=== PATIENT | male | born 1960 | race Caucasian/White ===

== ENCOUNTER → 2017-01-19 | Outpatient (CLI) | payer OTHER ==
[~2017-01-19] MED LIST: CEPH500C PO; OXYC1TAB3 PO; SULF800T23 PO
[2017-01-19 14:33] LABS: BENZODIAZEPINE, URINE NEG (NEG); COCAINE,URINE NEG (NEG); PHENCYCLIDINE, URINE NEG (NEG)
[2017-01-24 15:54] LABS: NORBUPRENORPHINE QNT 94 NG/ML (CUTOFF=2)
== END | disposition home or self-care (01) ==
LOC: C.LAB1850 09:56
PROVIDERS: ATTEND Psychiatry & Neurology Psychiatry
DX: F11.20 Opioid dependence, uncomplicated (principal)

== ENCOUNTER → 2017-06-13 | Outpatient (CLI) | payer OTHER ==
[2017-06-13 13:56] LABS: ALKALINE PHOSPHATASE 123 U/L (45-117); ALT/SGPT 23 U/L (12-78); AST/SGOT 13 U/L (15-37)
[2017-06-13 13:57] LABS: BENZODIAZEPINE, URINE NEG (NEG); COCAINE,URINE NEG (NEG); PHENCYCLIDINE, URINE NEG (NEG)
[2017-06-16 10:49] LABS: NORBUPRENORPHINE QNT 137 NG/ML (CUTOFF=2)
== END | disposition home or self-care (01) ==
LOC: C.LAB1850 12:26
PROVIDERS: ATTEND Psychiatry & Neurology Psychiatry
DX: F11.20 Opioid dependence, uncomplicated (principal)

== ENCOUNTER → 2017-10-27 | Outpatient (CLI) | payer OTHER ==
[2017-10-27 11:15] LABS: ALBUMIN 3.8 gm/dl (3.4-5.0); ALKALINE PHOSPHATASE 120 U/L (45-117); ALT/SGPT 29 U/L (12-78); AST/SGOT 20 U/L (15-37); TOTAL PROTEIN 7.4 gm/dl (6.4-8.2)
== END | disposition home or self-care (01) ==
LOC: C.LAB1850 09:28
PROVIDERS: ATTEND Psychiatry & Neurology Psychiatry
DX: F11.20 Opioid dependence, uncomplicated (principal)

== ENCOUNTER → 2018-02-09 | Outpatient (CLI) | payer OTHER ==
[2018-02-09 17:28] LABS: BASO % 0.4 %; BASO ABS # 0.04 K/uL (0-0.2); EOS % 2.3 %; EOS ABS # 0.21 K/uL (0-0.5); HEMATOCRIT 42.4 % (42-52); HEMOGLOBIN 15.2 g/dL (14.0-18.0); IG# 0.02 K/uL (0.00-0.02); LYMPH % 27.5 %; LYMPH ABS # 2.53 K/uL (1.2-3.4); MEAN CELL VOLUME 90.2 fL (80-100); MEAN CORPUSCULAR HEMOGLOBIN 32.3 pg (25-34); MEAN CORPUSCULAR HGB CONC 35.8 g/dl (32-36); MONO % 8.4 %; MONO ABS # 0.77 K/uL (0.11-0.59); NEUT % 61.2 %; NEUT ABS # 5.64 K/uL (1.4-6.5); PLATELET COUNT 219 K/uL (130-400); RED CELL DISTRIBUTION WIDTH CV 13.4 % (11.5-14.5); RED CELL DISTRIBUTION WIDTH SD 44.4 fL (36.4-46.3); WHITE BLOOD COUNT 9.21 K/uL (4.8-10.8)
[2018-02-09 17:43] LABS: ALT/SGPT 27 U/L (12-78); AST/SGOT 21 U/L (15-37); BLOOD UREA NITROGEN 17 mg/dl (7-18); CALCIUM 8.8 mg/dl (8.5-10.1); CARBON DIOXIDE 28 mmol/L (21-32); CREATININE 0.74 mg/dl (0.60-1.40); GLUCOSE 78 mg/dl (70-99); POTASSIUM 3.7 mmol/L (3.5-5.1); SODIUM 139 mmol/L (136-145)
[2018-02-09 17:45] LABS: ALKALINE PHOSPHATASE 126 U/L (45-117); TOTAL PROTEIN 7.1 gm/dl (6.4-8.2)
== END | disposition home or self-care (01) ==
LOC: C.LABSPEC 16:40
PROVIDERS: ATTEND Family Medicine
DX: R31.9 Hematuria, unspecified (principal)

== ENCOUNTER → 2018-02-13 | Outpatient (CLI) | payer OTHER | END | disposition home or self-care (01) | LOC: C.LAB1850 12:51 | PROVIDERS: ATTEND Psychiatry & Neurology Psychiatry | DX: F11.20 Opioid dependence, uncomplicated (principal) ==

== ENCOUNTER → 2018-02-14 | Outpatient (CLI) | payer OTHER ==
[~2018-02-14] MED LIST changes: +OPTIRAY 320 IV PRN
--- NOTE | 2018-02-14 15:07 | DIAGNOSTIC IMAGING REPORT ---
ABD/PELVIS COMBO CLINICAL HISTORY: 57 years-old Male presenting with HEMATURIA, PAIN WITH URINATION, back pain. TECHNIQUE: Multidetector CT of the abdomen and pelvis was performed before and after the administration of intravenous contrast. IV contrast: 94 mL of Optiray 320. A dose lowering technique was used consistent with the principles of ALARA (as low as reasonably achievable). COMPARISON: None. CT DOSE (mGy.cm): The estimated cumulative dose is 1838.68 mGycm. FINDINGS: Poising Inspector topogram: Unremarkable. Lung bases: Minimal basilar opacities, likely atelectasis. Normal heart size. No pericardial or pleural effusion. Liver: Normal morphology. No liver lesion. Patent hepatic vasculature. Biliary: No intrahepatic or extrahepatic biliary ductal dilatation. Normal gallbladder. Pancreas: Mild parenchymal atrophy. Spleen: Normal. Adrenal glands: Normal. Kidneys and ureters: A bilobed or two adjacent calculi are evident at the right ureterovesical junction. Together these measure 7 mm (series 3 image 371). Mild right pelvocaliectasis and mild distention of the right ureter. There is asymmetric mild infiltration of the right renal sinus and right perinephric fat. Subtle decreased density of the right renal parenchyma could suggest minimal edema. No additional renal or ureteral calculi. No left hydronephrosis or hydroureter. Mild right urothelial thickening. No filling defects within the renal collecting systems apart from the calculi. No evidence of renal or urothelial mass. Bladder: Circumferential bladder wall thickening. No bladder calculi. Pelvic organs: Prostate enlargement likely secondary to benign prostatic hyperplasia. Bowel: Limited diverticulosis of the sigmoid colon. No pericolonic inflammatory change. The appendix is normal. No bowel obstruction. Peritoneal cavity: No free fluid or intraperitoneal gas. Lymph nodes: No enlarged lymph nodes in the abdomen or pelvis. Vasculature: Atherosclerosis of the normal caliber abdominal aorta. IVC patent. Abdominal wall: Normal. Musculoskeletal: Degenerative changes of the spine. Bilateral pars defects of L4 with resultant grade 1 anterolisthesis of L4 on L5. IMPRESSION: 1. Obstructing bilobed or two adjacent calculi within the right ureterovesical junction with resultant mild right hydroureteronephrosis. No additional renal or ureteral calculi. No evidence of solid renal or urothelial mass. Electronically signed by: Fernando Harris M.D. 02/14/2018 3:06 PM Dictated Date/Time: 02/14/2018 2:57 PM
== END | disposition home or self-care (01) ==
LOC: C.CTS 13:43
PROVIDERS: ATTEND Family Medicine
DX: N13.2 Hydronephrosis with renal and ureteral calculous obstruction (principal)

== ENCOUNTER → 2018-02-16 | Outpatient (CLI) | payer OTHER ==
[~2018-02-16] MED LIST changes: -OPTIRAY 320 IV PRN
--- NOTE | 2018-02-16 16:03 | DIAGNOSTIC IMAGING REPORT ---
KUB CLINICAL HISTORY: 57 years-old Male presenting with N20.1 Ureteric stone. TECHNIQUE: Single supine view of the abdomen was obtained. COMPARISON: CT from 02/14/2018. FINDINGS: Nonobstructive bowel gas pattern. No gross pneumoperitoneum. 2 adjacent ureteral calculi remain in place in the distal right ureter. No radiographic evidence of renal calculi, which is concordant with the findings on recent CT. Degenerative changes of the spine. IMPRESSION: 1. Unchanged position of the 2 adjacent distal right ureteral calculi. Electronically signed by: Fernando Harris M.D. 02/16/2018 4:02 PM Dictated Date/Time: 02/16/2018 4:00 PM
== END | disposition home or self-care (01) ==
LOC: C.RAD 15:22
PROVIDERS: ATTEND Urology
DX: N20.1 Calculus of ureter (principal)

== ENCOUNTER → 2018-02-22 | Outpatient (CLI) | payer OTHER ==
[~2018-02-22] MED LIST changes: +ASPI81TA28 PO; +BUPR8MIS SL; +MULT-506 PO; +NITR1CAP33 PO; +PROP80TA2 PO; +SERT-234 PO; +TAMS0.4C38 PO
--- NOTE | 2018-02-22 11:51 | DIAGNOSTIC IMAGING REPORT ---
KUB CLINICAL HISTORY: Right flank pain. Ureteral stone. COMPARISON STUDY: CT of the abdomen and pelvis February 14, 2018 and KUB February 16, 2018. FINDINGS: 2 adjacent distal right ureteral calculi that measure up to 5 mm are unchanged in position since exam of February 16, 2018. No additional urinary calculi identified. Bowel gas pattern is normal. IMPRESSION: No change in position of 2 adjacent distal right ureteral calculi which measure up to 5 mm. Electronically signed by: Zak Holbrook M.D. 02/22/2018 11:50 AM Dictated Date/Time: 02/22/2018 11:47 AM
--- NOTE | 2018-02-22 14:54 | DIAGNOSTIC IMAGING REPORT ---
CHEST 2 VIEWS ROUTINE HISTORY: Preop. NEPHROLITHIASIS N20.0 COMPARISON: None. FINDINGS: The lungs are clear. Cardiac silhouette is normal in size. No pleural effusions. No pneumothorax. IMPRESSION: No acute process. Electronically signed by: Bishnu Naidu M.D. 02/22/2018 2:53 PM Dictated Date/Time: 02/22/2018 2:51 PM
== END | disposition home or self-care (01) ==
LOC: C.RAD 10:25
PROVIDERS: ATTEND Urology
DX: N20.0 Calculus of kidney (principal); N20.1 Calculus of ureter

== ENCOUNTER → 2018-02-24 | Day surgery (SDC) | payer OTHER ==
[2018-02-22 17:05] VITALS: Ht 177.8 cm; Wt 100.0 kg
[~2018-02-24] VITALS: Ht 177.8 cm; Wt 100.0 kg
[~2018-02-24] MED LIST changes: +ATROPINE SULFATE 0.1 MG/ML 5ML SYR IV PRN; -CEPH500C PO; +CIPROFLOXACIN 400MG / D5W IV SCH; +DEXAMETHASONE SOD INJ 4 MG/ML VIAL ONE; +EpHEDrine SULFATE 50MG/5ML SYR ONE; +EpHEDrine SULFATE INJ 50 MG/ML AMP IV PRN; +EpHEDrine SULFATE INJ 50 MG/ML AMP ONE; +FENTANYL CITRATE INJ 50 MCG/1 ML 2 ML VIAL IV PRN; +FENTANYL CITRATE INJ 50 MCG/1 ML 2 ML VIAL ONE; +HYDROmorphone INJ 0.5 MG/0.5 ML SYR IV PRN; +LABETALOL HCL IV 5 MG/ML 20ML IV PRN; +LIDOCAINE HCL 2% 2 ML VIAL (20MG/ML) ONE; +MIDAZOLAM HCL 1 MG/ML 2ML VIAL ONE; +ONDANSETRON INJ 2 MG/ML 2 ML VIAL IV PRN; +ONDANSETRON INJ 2 MG/ML 2 ML VIAL ONE; -OXYC1TAB3 PO; +OXYCODONE/ACETAMINOPHEN 5-325 TAB PO PRN; +PHENYLEPHRINE 100MCG/ML 5ML SYR IV PRN; +PROMETHAZINE HCL INJ 12.5 MG in SODIUM CHLORIDE 0.9% 50ML 50 ML IV PRN; +PROPOFOL IV EMULSION 10 MG/ML 20 ML VIAL ONE; -SULF800T23 PO
--- NOTE | 2018-02-24 10:46 | History & Physical Bridge Note ---
H&P Re-Evaluation Bridge Note: I have examined the patient, reviewed the History & Physical and in the interval since the performance of the History & Physical I have noted the following changes of clinical significance: No changes noted
[2018-02-24] MEDS: LACTATED RINGER'S 1000ML 1,000 ML IV SCH ×2 (10:54→14:09)
--- NOTE | 2018-02-24 12:43 | Discharge Instructions ---
Discharge Instructions Date of Service February 24, 2018. Admission Reason for Admission: Stones Discharge Discharge Diagnosis / Problem: R distal ureteral stone s/p ESWL Discharge Goals Goal(s): Decrease discomfort, Improve disease control, Therapeutic intervention Activity Recommendations Activity Limitations: as noted below Lifting Limitations: no more than 25 pounds, gradually increase as tolerated Exercise/Sports Limitations: rest today, gradually increase as tolerated May Resume Sexual Activity: when tolerated Shower/Bathe: no limitations Driving or Machine Use: resume 1 day after discharge . Instructions / Follow-Up Instructions / Follow-Up As scheduled in office with KUB Xray done before visit. Current Hospital Diet Patient's current hospital diet: Discharge Diet Recommended Diet: Regular Diet (good fluid intake) Procedures Procedures Performed: Right ureteral shockwave lithotripsy Pending Studies Studies pending at discharge: yes List of pending studies: KUB Xray before follow-up visit Medical Emergencies . Who to Call and When: Medical Emergencies: If at any time you feel your situation is an emergency, please call 911 immediately. . Non-Emergent Contact Non-Emergency issues call your: Urologist Call Non-Emergent contact if: you have a fever, temperature is above 101, your pain is not controlled, your pain is worsening, your pain is unusual for you, your pain is concerning you, you have any medication questions . . "Provider Documentation" section prepared by Adrian Grimes. .
--- NOTE | 2018-02-24 13:45 | [facility] Post Operative Brief Note ---
Immediate Operative Summary Operative Date February 24, 2018. Pre-Operative Diagnosis Right ureteral stone Post-Operative Diagnosis Right ureteral stone Procedure(s) Performed Right Extracorporeal Shock Wave Lithotripsy-Ureteral Surgeon Dr. Adrian Grimes Mat Packer Surgeon(s) None Estimated Blood Loss 0ml Findings Consistent with Post-Op Diagnosis Specimens None per surgeon Drains None Anesthesia Type General Complication(s) none Disposition Accompanied Pt To Recover: yes Disposition: Recovery Room / PACU
[2018-02-24 14:49] VITALS: TEMP 36.3
[2018-02-24 15:05] VITALS: BP 158/79; PULSE 60; O2SAT 96
--- NOTE | 2018-02-24 15:19 | Anesthesia Progress Nt - [facility] ---
Anesthesia Post Op Note Date & Time February 24, 2018 at 15:19 Vital Signs Pain Intensity: 6 Vital Signs Past 12 Hours Date Time Temp Pulse Resp B/P (MAP) Pulse Ox O2 Delivery O2 Flow Rate FiO2 02/24/18 14:49 36.3 57 18 146/69 (94) 96 Room Air 02/24/18 14:45 36.2 02/24/18 14:44 53 16 02/24/18 14:44 52 16 95 02/24/18 14:41 154/75 (107) 02/24/18 14:39 54 22 96 02/24/18 14:39 53 22 02/24/18 14:36 145/75 (101) 02/24/18 14:35 36.4 50 16 154/75 95 Room Air 02/24/18 14:34 55 16 95 02/24/18 14:34 55 16 02/24/18 14:31 142/81 (105) 02/24/18 14:29 52 17 96 02/24/18 14:29 52 17 02/24/18 14:26 145/73 (88) 02/24/18 14:24 58 16 95 02/24/18 14:24 58 16 02/24/18 14:21 148/78 (104) 02/24/18 14:19 58 17 97 02/24/18 14:19 57 17 02/24/18 14:17 136/81 (104) 02/24/18 14:14 56 18 100 02/24/18 14:14 57 18 02/24/18 14:11 152/79 (94) 02/24/18 14:09 52 12 02/24/18 14:09 52 12 99 02/24/18 14:06 153/76 (98) 02/24/18 14:04 53 13 100 02/24/18 14:04 54 13 02/24/18 14:01 145/76 (97) 02/24/18 13:59 55 12 02/24/18 13:59 56 12 99 02/24/18 13:56 138/71 (106) 02/24/18 13:54 57 17 99 02/24/18 13:54 54 17 02/24/18 13:51 148/82 (100) 02/24/18 13:49 58 16 100 02/24/18 13:49 59 16 02/24/18 13:47 149/78 (114) 02/24/18 13:46 36.7 62 16 149/78 99 Mask 6 02/24/18 10:23 36.5 56 16 150/86 (107) 97 Room Air Notes Mental Status: alert / awake / arousable, participated in evaluation Pt Amnestic to Procedure: Yes Nausea / Vomiting: adequately controlled Pain: adequately controlled Airway Patency, RR, SpO2: stable & adequate BP & HR: stable & adequate Hydration State: stable & adequate Anesthetic Complications: no major complications apparent
--- NOTE | 2018-02-24 15:28 | OPERATIVE REPORT ---
DATE OF OPERATION: 02/24/2018 PREOPERATIVE DIAGNOSIS: Right ureteral stone. POSTOPERATIVE DIAGNOSIS: Right ureteral stone. PROCEDURE: Right ureteral extracorporal shock wave lithotripsy. SURGEON: Adrian Grimes M.D. POLYMER TESTER: None. ANESTHESIA: General anesthesia with laryngeal mask. COMPLICATIONS: None. FINDINGS: Excellent stone fragmentation on fluoroscopy. DRAINS: None. SPECIMENS: None. DETAILS OF PROCEDURE: The patient was brought to the litho suite. He was correctly identified and the stone was visualized on his most recent x-rays. After the correct time out was performed the patient was positioned over the therapy head. An adequate level of anesthesia was administered. The extracorporeal shockwave lithotripsy treatment was then commenced. Please see the [facility] sheet for complete treatment summary. After completion of the procedure the patient was taken to the recovery room in stable condition. I attest to the content of the Intraoperative Record and any orders documented therein. Any exception s are noted below.
== END | disposition home or self-care (01) ==
LOC: X.SURG 09:38
PROVIDERS: ATTEND Urology
DX: N20.1 Calculus of ureter (principal); I10 Essential (primary) hypertension; Z82.49 Family history of ischemic heart disease and other diseases of the circulatory system; Z80.1 Family history of malignant neoplasm of trachea, bronchus and lung; F17.200 Nicotine dependence, unspecified, uncomplicated

== ENCOUNTER 2024-11-01 10:18 | Observation (INO) ==
--- NOTE | 2024-10-25 09:31 | Anesthesiology Consultation ---
Date of Service October 25, 2024 Assessment & Plan (1) Encounter for pre-operative examination: - awaiting PCP response to below message, optimization form to also be faxed to Dr. Reddy's office. - hypokalemia: 2.9 on 10/23/24 ordered by surgeon. I contacted PCP and was advised message will be sent at this time to his PCP and they will further advise patient on hypokalemia and at this time plan for surgery next week. Surgeon's office was made aware. - Per tetryl dissolver operator on 10/18/24: No known infectious disease contacts, current infectious disease symptoms in past 10 days or COVID positive test result in the past 30 days. Chart Review Chart Review: Pending: Refer to Additional Notes / Consult section and Patient NOT seen in Pre Admission Testing History Surgery Operation Date: 11/01/24 09:50 Proposed Procedures p TURP (Transurethral Resection of the Prostate) - Jamie Schwartz, DO Height/Weight Height: 5 ft 10 in Weight: 78.018 kg Allergies Allergy/AdvReac Type Severity Reaction Status Date / Time No Known Allergies Allergy Verified 10/18/24 12:13 Medications Home Medications Medication Instructions Recorded Confirmed Last Taken buprenorphine 8 mg-naloxone 2 mg 1 film sublingual QAM 01/19/22 10/18/24 01/21/22 sublingual film (Suboxone) duloxetine 30 mg capsule,delayed 30 mg PO QAM 01/19/22 10/18/24 01/20/22 release sprinkle duloxetine 60 mg capsule,delayed 60 mg PO QAM 01/19/22 10/18/24 01/20/22 release magnesium glycinate 100 mg (as 100 mg PO QPM 01/19/22 10/18/24 01/20/22 glycinate) tablet vitamin D3 25 mcg (1,000 unit)-vit 1 tab PO QAM 01/19/22 10/18/24 01/20/22 K2 90 mcg disintegrating tablet chlorthalidone 25 mg tablet 25 mg PO QAM 10/18/24 10/18/24 Unknown dutasteride 0.5 mg capsule 0.5 mg PO QAM 10/18/24 10/18/24 Unknown silodosin 8 mg capsule (Rapaflo) 8 mg PO BID 10/18/24 10/18/24 Unknown Past Medical History Medical History BPH w urinary obs/LUTS Carpal tunnel syndrome, bilateral Depression Emphysema, unspecified pt. 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, gets yearly CT, occ sob with stairs Hearing deficit BL DE JESUS History of renal stone Hx of colonic polyps Hypertension Osteoarthritis Past Family History Family History Other No family history of adverse response to anesthesia Past Surgical History Surgical History History of lithotripsy Hx of colonoscopy with polypectomy Hx of cystoscopy Social History Smoking Status: Current every day smoker tobacco type: cigarettes Smoking cigarettes per day: 25-30 cigs per day (advised) Do You Dip or Chew Tobacco: No Hx Alcohol Use: No Hx Substance Use: Yes substance use type: does not use, former substance user, marijuana and pain killers Substance Use Type Other:: hx substance abuse - painkillers Last Used Substance Other:: previous addiction to painkillers, quit 10 years ago Lab Results Anesthesia Preop Results Results Anesthesia Widget: WBC 6.19 K/ul (4.8-10.8) 10/23/24 Hgb 15.6 g/dl (14.0-18.0) 10/23/24 Hct 44.0 % (42.0-52.0) 10/23/24 Plt 191 K/uL (130-400) 10/23/24 Na 139 mmol/L (136-145) 10/23/24 K 2.9 mmol/L (3.5-5.1) L 10/23/24 Cl 96 mmol/L (98-107) L 10/23/24 CO2 36 mmol/L (21-32) H 10/23/24 BUN 18 mg/dl (6-23) 10/23/24 Creat 0.59 mg/dl (0.6-1.4) L 10/23/24 Glucose Level 92 mg/dl (70-99(Fasting)) 10/23/24 Urine Appearance Slightly Cloudy 09/11/24 Testing Electrocardiogram Date: 10/23/24 Sinus bradycardia, rate [address] abnormality No significant abnormality vs 02/22/18 EKG Chest X-Ray Date: 10/23/24 No acute chest disease. Other Testing Abdomen pelvis CT 09/24/24 1. Age-indeterminate L1 compression deformity is seen, correlation with point tenderness is recommended. 2. Prostamegaly with resultant bladder outlet obstruction. Low dose lung CT 03/21/24 1. Subacute healing nondisplaced anterior right fourth rib fracture. No pneumothorax. 2. Emphysema with bronchitis. 3. No suspicious pulmonary nodules.
[2024-11-01] MEDS ORDERED: ATROPINE SULFATE 0.1 MG/ML 10ML SYR IV PRN (10:52)
[2024-11-01] MEDS ORDERED: ONDANSETRON INJ 2 MG/ML 2 ML VIAL IV PRN (10:52)
[2024-11-01] MEDS ORDERED: ePHEDrine sulfate 50 MG/ML AMP IV PRN (10:52)
[2024-11-01] MEDS: LACTATED RINGER'S 1,000 ML IV SCH (10:58)
--- NOTE | 2024-11-01 11:00 | History & Physical Bridge Note ---
Date of Service November 01, 2024 History & Physical Bridge Note I have examined the patient, reviewed the History & Physical and in the interval since the performance of the History & Physical I have noted the following changes of clinical significance: no changes noted
[2024-11-01] MEDS ORDERED: oxyCODONE/ACETAMINOPHEN 5mg/325mg TAB PO PRN (11:07)
[2024-11-01] MEDS ORDERED: fentaNYL citrate PF 100 MCG/2 ML VIAL ONE (11:32)
[2024-11-01] MEDS ORDERED: ONDANSETRON INJ 2 MG/ML 2 ML VIAL ONE (11:32)
[2024-11-01] MEDS ORDERED: MIDAZOLAM HCL 1 MG/ML 2ML VIAL ONE (11:32)
[2024-11-01] MEDS ORDERED: PROPOFOL IV EMULSION 10 MG/ML 20 ML VIAL IV ONE (11:32)
[2024-11-01] MEDS ORDERED: DEXAMETHASONE SOD INJ 4 MG/ML VIAL ONE (11:32)
[2024-11-01] MEDS: cefTRIAXone SODIUM 1,000 MG MINI-B 50ML IV SCH (12:43)
[2024-11-01] MEDS ORDERED: GLYCOPYRROLATE 0.2 MG/ML VIAL ONE (13:13)
[2024-11-01] MEDS ORDERED: PHENYLEPHRINE 100MCG/ML 5ML SYR ONE (13:15)
[2024-11-01] MEDS: fentaNYL citrate PF 100 MCG/2 ML VIAL IV PRN (14:00)
--- NOTE | 2024-11-01 14:06 | Operative Report ---
[facility] Post Operative Report Pre & Post Diagnosis Operation Date: 11/01/24 11:40 Pre-Op Diagnosis: Benign Prostatic Hyperplasia with Urinary Obstruction Post-Op Diagnosis: Benign Prostatic Hyperplasia with Urinary Obstruction I identified the patient and participated in the time-out.: Yes Procedure Operation Date: 11/01/24 11:40 Actual Procedures Transurethral Resection of the Prostate - Jamie Schwartz DO Surgeon Jamie Schwartz, II, DO Backhoe Operator None Estimated Blood Loss 10 Findings Consistent with Post-Op Diagnosis Large Prostate with obstruction. Specimens Prostate adenoma. Drains 24 Fr 3way Catheter Anesthesia Type General Complications none Disposition Disposition: Recovery Room Indications Patient with obstruction due to prostate enlargement. Risks and benefits discussed at length. Description of Procedure Patient was consented and brought back to the operating room. Patient was placed under anesthesia in the supine position and moved to the dorsal lithotomy position. Patient was prepped and draped in the regular sterile fashion. A time out was completed. A 30degree Cystoscope was placed into the bladder and the entire bladder was examined. The UO's were identified as well as the bladder neck, trigone, dome, and the other important landmarks. The prostatic urethra and large lobes/adenoma was assessed and the veru and bladder neck identified and area/size was assessed. The resection scope was placed and the fine bipolar loop was selected. Starting at the 5 and 7 o'clock positions, a channel was created from bladder neck to the veru. Once the channel was resected down to capsule fibers the lateral lobes were resected starting at the 1 and 11 o'clock position. The tissue was resected down to capsule fibers and then the tissue was further debulked. This was taken down towards the channel. This allowed complete clearing of the large amount of prostate tissue. After resection some areas of bleeding were fulgurated using the loop. The Specimen was removed and sent for analysis. The resection bed and any bleeding areas were fulgurated/cauterized and the entire area inspected. All bleeding was controlled. The bladder was inspected a final time. The bladder was emptied and irrigated. All specimen and debris was removed. The scope was removed with the bladder partially full. A catheter was placed and balloon elevated. This was easily irrigated. The patient was cleaned, aroused from anesthesia, and transferred to the pacu in stable condition having tolerated the procedure well with no complications. I was present and participated in all aspects of the procedure. The patient will be monitored in the PACU until transferred. Plan to observe overnight. Will plan to set follow-up for cath removal in approximately 7 to 10 days with pathology I attest to the content of the Intraoperative Record and any orders documented therein. Any exceptions are noted below.
[2024-11-01] MEDS ORDERED: HYDROmorphone INJ 0.5 MG/0.5 ML SYR IV PRN (14:12)
[2024-11-01] MEDS: HYDROmorphone INJ 2 MG/ML SYR/VIAL ONE (14:20)
--- NOTE | 2024-11-01 14:27 | Anesthesiology Progress Note ---
Date of Service November 01, 2024 Anesthesia Post Procedure Vital Signs Vital Signs: Temp Pulse Resp BP Pulse Ox O2 Del Method O2 Flow Rate 11/01/24 14:25 65 16 143/78 H 99 Room Air 11/01/24 14:15 66 18 141/49 H 100 Oxymask 5 11/01/24 14:05 71 18 122/75 99 Oxymask 5 11/01/24 13:58 36.0 C L 78 18 155/72 H 98 Oxymask 5 11/01/24 10:45 36.6 C 73 20 145/69 H 96 Room Air Transfer of Care Handoff Completed per policy Notes Mental Status: alert / awake / arousable and participated in evaluation Patient Amnestic to Procedure: Yes Nausea / Vomiting: adequately controlled Pain: improving with treatment Airway Patency, RR, SpO2: stable & adequate BP & HR: stable & adequate Hydration State: stable & adequate Anesthetic Complications: no major complications apparent and Pt Satisfied with anesthetic care
--- NOTE | 2024-11-01 17:01 | Hospitalist Consultation ---
Date of Consultation November 01, 2024 Assessment & Plan (1) Hx of opioid abuse: (2) Hypertension: (3) Tobacco abuse: (4) BPH w urinary obs/LUTS: Plan Dain is a 64M with PMHx of HTN, BPH and hx of opioid abuse who presents to the hospital for elective prostate surgery with Dr. Schwartz. #hx of opioid abuse Continue Suboxone. Continue Duloxetine. Will attempt to avoid opioids - multimodal pain control with ice, Pyridium and Tylenol, toradol #HTN BP controlled post operatively Hold chlorthalidone pending AM BMP #Tobacco Use smoked 1.5ppd - declines nicotine patch #BPH S/p TURP with Dr. Schwartz 11/01 Defer abx, catheter management, restarting duasteride and Rapaflo, and discharge planning to primary team. Thank you for allowing us to participate in the care of this patient, please reach out with any questions or concerns. Medicine will continue to follow. Supervising Physician Co-Signing Physician Notes Patient seen and examined, chart reviewed, case discussed with Bela Aden PA-C and I agree with the assessment and plan as above except as otherwise noted above. Pain well controlled, no distress at time of bedside visit. History of Present Illness Reason for Consultation: Chronic pain management, neruopathy Requesting Physician: Dr. Townsend Attending Physician: Jamie Schwartz, II, DO History of Present Illness Dain is a 64M with PMHx of HTN, BPH and hx of opioid abuse who presents to the hospital for elective prostate surgery with Dr. Schwartz. Seen post operatively, eating dinner. Having pain in the groin area but otherwise doing well. Just received Pyridium. CBI is running. Denies CP or SOB or nausea. Has not passed gas since surgery. Spokes about 1.5 ppd declines nicotine patch Allergies Allergy/AdvReac Type Severity Reaction Status Date / Time No Known Allergies Allergy Verified 11/01/24 10:45 Home Medications Medication Instructions Recorded Confirmed Type buprenorphine 8 mg-naloxone 2 mg 1 film sublingual QAM 01/19/22 11/01/24 History sublingual film (Suboxone) duloxetine 30 mg capsule,delayed 30 mg PO QPM 01/19/22 11/01/24 History release sprinkle duloxetine 60 mg capsule,delayed 60 mg PO QAM 01/19/22 11/01/24 History release magnesium glycinate 100 mg (as 100 mg PO QPM 01/19/22 11/01/24 History glycinate) tablet vitamin D3 25 mcg (1,000 unit)-vit 1 tab PO QAM 01/19/22 11/01/24 History K2 90 mcg disintegrating tablet chlorthalidone 25 mg tablet 25 mg PO QAM 10/18/24 11/01/24 History dutasteride 0.5 mg capsule 0.5 mg PO QAM 10/18/24 11/01/24 History silodosin 8 mg capsule (Rapaflo) 8 mg PO BID 10/18/24 11/01/24 History potassium chloride 20 mEq 40 meq PO BID 11/01/24 11/01/24 History tablet,extended release Patient History Medical History BPH w urinary obs/LUTS Carpal tunnel syndrome, bilateral Depression Emphysema, unspecified pt. 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, gets yearly CT, occ sob with stairs Hearing deficit BL DE JESUS History of renal stone Hx of colonic polyps Hypertension Osteoarthritis Surgical History History of lithotripsy Hx of colonoscopy with polypectomy Hx of cystoscopy Family History Other No family history of adverse response to anesthesia Social History Smoking Status: Current every day smoker Tobacco Type: Cigarettes Cigarettes Per Day: 25-30 cigs per day (advised); Second Hand Exposure: No; Do You Dip or Chew Tobacco: No; Tobacco Cessation Education Requested by Patient: No Hx Alcohol Use: No Hx Substance Use: Yes Last Used Substance Other:: previous addiction to painkillers, quit 10 years ago Substance Use Type Other:: hx substance abuse - painkillers Preferred Language: Georgian Communication Ability: Effective Reference Assistant Required: No Beliefs That Will Affect Care: None Current Living Situation: Spouse Other Information That Helps Us Care for You: No Feels Safe at Home: Yes Safety Concerns: Feels Safe At This Time Assistive Devices: Denture - Upper, Glasses and Hearing Aid - Bilateral Review of Systems Review of Systems: All systems reviewed & are unremarkable except as noted in Subjective Physical Exam Physical Exam: General: NAD, VS as above Resp: normal respiratory effort, lungs clear to auscultation CV: RRR, no murmur, Abd: normal bowel sounds, non tender Extremities: Moves all extremities, no edema Neuro: A&O x3, Results & Data Results & Data Vital Signs (Past 12 Hours) Vital Signs Temp Pulse Pulse Resp BP BP Pulse Ox 11/01/24 16:00 97.3 F L 65 16 124/71 93 11/01/24 15:28 97.3 F L 65 18 144/77 H 96 11/01/24 15:15 11/01/24 15:02 97.5 F L 66 16 144/77 H 96 11/01/24 14:35 97.2 F L 61 16 135/70 96 11/01/24 14:25 65 16 143/78 H 99 11/01/24 14:15 66 18 141/49 H 100 11/01/24 14:05 71 18 122/75 99 11/01/24 13:58 96.8 F L 78 18 155/72 H 98 11/01/24 10:45 97.9 F 73 20 145/69 H 96 O2 Del Method O2 Flow Rate 11/01/24 16:00 Room Air 11/01/24 15:28 Room Air 11/01/24 15:15 Room Air 11/01/24 15:02 Room Air 11/01/24 14:35 Room Air 11/01/24 14:25 Room Air 11/01/24 14:15 Oxymask 5 11/01/24 14:05 Oxymask 5 11/01/24 13:58 Oxymask 5 11/01/24 10:45 Room Air PG Care Time/CCT Total # of Minutes Spent Total Time Spent with Patient: Total time spent is greater than 50% in coordination of care (as documented) at patient's floor/unit and/or counseling patient: Coding Level of Care Code 78399 IN/OBS CONSULT LVL 3,45M Diagnoses Hx of opioid abuse F11.11 Hypertension I10 Tobacco abuse Z72.0 BPH w urinary obs/LUTS N40.1; N13.8
[2024-11-01] MEDS: PHENAZOPYRIDINE HCL 200 MG TAB PO PRN (17:05)
[2024-11-01] MEDS: CIPROFLOXACIN / D5W 400 MG/200 ML BAG IV SCH (17:38)
[2024-11-01] MEDS: KETOROLAC TROMETHAMINE 15 MG/ML VIAL IV PRN (18:09)
[2024-11-01] MEDS: DULoxetine HCL 30 MG CAP PO SCH (20:30)
[2024-11-01] MEDS: DOCUSATE SODIUM 100 MG CAP PO SCH (20:30)
[2024-11-02 03:10] VITALS: O2SAT 94
[2024-11-02 07:06] LABS: BUN Creatinine Ratio 41.3 (10-20); Calcium 8.6 mg/dl (8.6-10.3); Creatinine Clr Calc Pharmacy 119.1 ml/min; Potassium 3.3 mmol/L (3.5-5.1)
[2024-11-02 08:08] VITALS: BP 107/62; PULSE 63; RESP 18; TEMP 97.7
[2024-11-02] MEDS: ACETAMINOPHEN 500 MG TAB PO PRN (08:37)
[2024-11-02] MEDS: POTASSIUM CHLORIDE CRTAB 20 MEQ TABCR PO SCH (08:37)
--- NOTE | 2024-11-02 08:37 | Urology Progress Note ---
Date of Service November 02, 2024 Assessment & Plan (1) BPH w urinary obs/LUTS: Plan: - Pt POD#1 s/p TURP with Dr. Schwartz - Doing well, progressing as expected - Afebrile, hemodynamically stable - Lab work reviewed - creatinine 0.63, WBC 6.19, Hgb 15.6 - Tolerating PO diet - 3 way Sheridan catheter intact, patent and draining light red/orange urine with CBI on slow - Plan to wean CBI as appropriate and discharged to home with Sheridan catheter - CBI clamped this morningwill reassess later this AM - Maintain Sheridan catheter - Anticipate home with Sheridan catheter later today presuming urine appropriate and he continues to progress as expected - Expected clinical course reviewed, all questions answered - Will arrange outpatient follow-up with our service for voiding trial Admission and Anticipated Discharge Date Admission Date: November 01, 2024 Subjective Patient seen and examined at bedside this morning. He is awake and resting in bed. No acute issues overnight. Denies pain at present. Sheridan patent and draining thin light keith/orange colored with CBI on slow, CBI clamped at bedside. No fever or chills. Review of Systems Constitutional: as per Subjective / HPI Genitourinary: + as per Subjective / HPI Physical Exam Constitutional: well developed and well nourished; no acute distress Respiratory: normal respiratory effort; no respiratory distress and no labored breathing Gastrointestinal (Abdomen): Inspection/Auscultation: abdomen normal to i nspection Musculoskeletal: Head/Neck/Chest: normocephalic Neurologic: moves all extremities and awake Psychiatric: Orientation: alert and oriented x 3 Genitourinary: Sheridan patent and draining thin light keith/orange colored with CBI on slow, CBI clamped at bedside. Results & Data Vital Signs (Past 12 Hours) Vital Signs Temp Pulse Resp BP BP Pulse Ox O2 Del Method 11/02/24 08:07 36.5 C 63 18 107/62 94 Room Air 11/02/24 07:20 Room Air 11/02/24 03:09 36.3 C L 60 17 118/67 94 Room Air 11/02/24 00:07 36.6 C 68 18 100/60 93 Room Air 11/01/24 22:00 36.4 C L 60 16 111/61 94 Room Air PG Care Time/CCT Total # of Minutes Spent Total Time Spent with Patient: Total time spent is greater than 50% in coordination of care (as documented) at patient's floor/unit and/or counseling patient: Coding Level of Care Code None Diagnoses BPH w urinary obs/LUTS N40.1; N13.8
[2024-11-02] MEDS: DULoxetine HCL 60 MG CAP PO SCH (08:38)
[2024-11-02] MEDS: BUPRENORPHINE/NALOXONE 8/2 MG TAB SL SCH (08:39)
--- NOTE | 2024-11-02 09:57 | Discharge Summary ---
Date of Service November 02, 2024 Admission HPI Per Admitting Provider Patient with BPH with obstruction here for transurethral resection of prostate. Principal Diagnosis BPH with obstruction Discharge Exam Constitutional well developed and well nourished; no acute distress Respiratory normal respiratory effort; no respiratory distress and no labored breathing Gastrointestinal (Abdomen) Inspection/Auscultation: abdomen normal to inspection Musculoskeletal Head/Neck/Chest: normocephalic Neurologic moves all extremities and awake Psychiatric Orientation: alert and oriented x 3 Genitourinary Sheridan draining light keith/orange tinged urine Discharge Data Allergies Allergy/AdvReac Type Severity Reaction Status Date / Time No Known Allergies Allergy Verified 11/01/24 10:45 Consultations 11/01/24 11:13 Consult Hospitalist Routine Procedures Performed Operation Date: 11/01/24 11:40 Actual Procedures p Transurethral Resection of the Prostate(Not Applicable) - Jamie Schwartz, DO Hospital Course (1) BPH w urinary obs/LUTS: - Pt POD#1 s/p TURP with Dr. Schwartz - Doing well, progressing as expected - Afebrile, hemodynamically stable - Lab work reviewed - creatinine 0.63, WBC 6.19, Hgb 15.6 - Tolerating PO diet - 3 way Sheridan catheter intact, patent and draining light red/orange urine with CBI on slow - Plan to wean CBI as appropriate and discharged to home with Sheridan catheter - CBI clamped this morningwill reassess later this AM - Maintain Sheridan catheter - Anticipate home with Sheridan catheter later today presuming urine appropriate and he continues to progress as expected - Expected clinical course reviewed, all questions answered - Will arrange outpatient follow-up with our service for voiding trial Total Time Total Time Spent Total Time Spent (In Minutes): 29 Discharge Plan Discharge Items Patient Disposition: Home - Self-Care Reason For Visit: Benign Prostatic Hyperplasia with Urinary Obstruct Discharge Diagnosis: Benign prostatic hyperplasia with urinary obstruction Activity: Per Instructions section Lifting: No more than 25 pounds Bathing Comment: Okay to shower after discharge, no tub bath or soaking Sexual Activity: Wait until after follow-up appointment Exercise/Sports: Wait until after follow-up appointment Driving/Machine Use: Resume 1 day after discharge Non-emergency contact: Surgeon and Urologist Call non-emergency contact if: your pain is worsening, you have a fever and your temperature is above 101 Follow-up/Referrals: Abhi Reddy [Primary Care Provider] - Diet: Regular Addtl Attending Provider Instructions: The surgery you had was: transurethral resection of prostate Please take all medications as prescribed and keep all follow-ups as scheduled. Please call our office at [phone] with any questions, concerns or need to reschedule appointments for any reason. We are happy to assist you. Tips for your recovery at home: Dont be alarmed by brownish or reddish blood or clots in your urine. This is a result of the procedure. This may occur off and on for weeks to months after the procedure but should continue to improve. Drink plenty of fluids during the day (enough to keep your urine very light colored). This will help keep a healthy flow of urine. Do not lift >25 lbs until your followup Avoid constipation. Please use a stool softener (Colace) for the first two weeks after your procedure Be sure to finish the antibiotics as prescribed. If you go home with a catheter, please wash tubing where it enters your body twice daily with mild soap (Dove or Dial). Once your catheter is removed, expect some blood in your urine and some burning when you urinate. You should have an appointment to have this removed, if you do not please call our office to arrange. Pending Studies at Discharge: Yes Stand-Alone Forms: My [facility] [employer], Smoking Cessation Medications and DC Order Prescriptions: New phenazopyridine [Pyridium] 200 mg tablet 200 mg PO Q8H PRN (Reason: pain) Qty: 10 0RF oxybutynin chloride 5 mg tablet 5 mg PO TID PRN (Reason: bladder spasms) Qty: 14 0RF cephalexin 500 mg capsule 500 mg PO BID 7 Days Qty: 14 0RF Continued duloxetine 60 mg Capsule,Delayed Release(Dr/Ec) 60 mg PO QAM vitamin D3-vitamin K2 1000-90 unit-mcg Tablet,Disintegrating 1 tab PO QAM magnesium glycinate 100 mg Tablet 100 mg PO QPM buprenorphine-naloxone [Suboxone] 8-2 mg Film 1 film SUBLINGUAL QAM duloxetine 30 mg Capsule, Delayed Rel Sprinkle 30 mg PO QPM chlorthalidone 25 mg tablet 25 mg PO QAM dutasteride 0.5 mg capsule 0.5 mg PO QAM silodosin [Rapaflo] 8 mg Capsule 8 mg PO BID Rx Instructions: must administer with a meal/food potassium chloride 20 mEq Tablet Extended Release 40 meq PO BID Discharge Orders: Discharge Order (Routine); Ordered 11/02/24 Ordered By: Leonela Estrada/Other Patient Handouts: Indwelling Urinary Catheter Dc, Leg Bag Care Dc Admission Data Admit Date/Time: 11/01/24 11:07 Attending Provider: Jamie Schwartz Admit Provider: Jamie Schwartz Primary Care Provider: Abhi Reddy Other Providers: Kori Hernandez Other Interventions: Discharge Summary Assessment (RN) Last Done: 11/02/24 10:02 Coding Level of Care Code 08131 IN/OBS DISCH 30 MIN/LESS Diagnoses BPH w urinary obs/LUTS N40.1; N13.8
[2024-11-02 10:10] LABS: Hematocrit (blood only) 37.6 % (42.0-52.0); Hemoglobin 13.3 g/dl (14.0-18.0); Mean Corpuscular Hemoglobin 31.8 pg (25.0-34.0); Mean Corpuscular Hgb Conc 35.4 g/dL (32.0-36.0); Mean Platelet Volume 11.1 fL (9.4-12.4); Platelet Count 181 K/uL (130-400); RDW Coefficient of Variation 12.9 % (11.5-14.5); RDW Standard Deviation 42.5 fL (36.4-46.3); Red Blood Count 4.18 M/uL (4.70-6.10); White Blood Count 10.82 K/ul (4.8-10.8)
--- NOTE | 2024-11-02 11:28 | Communication Note ---
Date of Service: November 02, 2024 Patient discharged prior to being able to see him. Hgb 13.3 which is slightly lower that prior (15.6) last week. Consider repeat labs later this week if continued hematuria. Okay to continue home meds. This note forwarded to PCP.
== END 2024-11-02 11:04 | disposition home or self-care (01) ==
LOC: ASU 10:18 → 3N 10:18